=== PATIENT | female | born 1985 | race Hispanic/Latino ===

== ENCOUNTER 2023-02-22 09:34 | Inpatient (IN) | payer SELFPAY ==
[2023-02-22 11:29] LABS: #Monocytes 0.5 10x3/uL (0.0-1.1); #Neutrophils 9.5 10x3/uL (1.5-8.4); %Basophils 0.2 % (0.0-2.0); %Eosinophils 0.1 % (0.0-6.0); %Lymphocytes 22.7 % (18.0-47.0); %Monocytes 3.9 % (0.0-10.0); %Neutrophils 72.5 % (40.0-75.0); Mean Corpuscular HGB CONC 30.8 g/dL (32.0-36.0); Mean Corpuscular Hemoglobin 23.9 pg (27.0-33.0); Mean Corpuscular Volume 77.5 fl (81.6-98.3); Platelet Count 381 10x3/uL (150-450); RBC Distribution Width 19.2 % (11.5-14.5); Red Blood Cell (RBC) Count 2.93 10x6/uL (3.90-5.03); White Blood Cell (WBC) Count 13.1 10x3/uL (3.5-10.5)
[2023-02-22 15:05] LABS: Hemoglobin 8.6 g/dL (12.0-15.5)
[2023-02-22] MEDS ORDERED: Acetaminophen 325 MG TAB PO PRN (15:57)
[2023-02-22] MEDS ORDERED: Ondansetron ODT 4 MG TAB PO PRN (15:57)
[2023-02-22] MEDS ORDERED: Ondansetron PF 4 MG/2 ML Vial IVP PRN (15:57)
[2023-02-22] MEDS ORDERED: HumaLOG 300 UNITS/3 ML VIAL SC PRN ×2 (15:59)
[2023-02-22] MEDS ORDERED: Dextrose 50% Abboject 50 ML SYRINGE SLOW IVP PRN (15:59)
[2023-02-22] MEDS ORDERED: Dextrose 5% in Water 1,000 ML IV PRN (15:59)
[2023-02-22] MEDS ORDERED: Sodium Chloride 0.9% 1,000 ML IV SCH (16:00)
[2023-02-22] MEDS ORDERED: Electrolyte Replacement Protocol 1 EACH FS SCH (16:00)
[2023-02-22 18:37] LABS: Hemoglobin 8.5 g/dL (12.0-15.5)
[2023-02-22] MEDS ORDERED: Atorvastatin Calcium 40 MG TAB ONE (20:53)
[2023-02-22] MEDS ORDERED: Atorvastatin Calcium 40 MG TAB PO SCH (21:00)
[2023-02-23 00:13] LABS: Hemoglobin 7.6 g/dL (12.0-15.5)
[2023-02-23 06:19] LABS: #Eosinphils 0.1 10x3/uL (0.0-0.5); #Monocytes 0.5 10x3/uL (0.0-1.1); #Neutrophils 7.3 10x3/uL (1.5-8.4); %Basophils 0.3 % (0.0-2.0); %Eosinophils 0.9 % (0.0-6.0); %Lymphocytes 26.3 % (18.0-47.0); %Monocytes 4.4 % (0.0-10.0); %Neutrophils 67.4 % (40.0-75.0); Hemoglobin 7.3 g/dL (12.0-15.5); Mean Corpuscular HGB CONC 31.6 g/dL (32.0-36.0); Mean Corpuscular Hemoglobin 24.6 pg (27.0-33.0); Mean Corpuscular Volume 77.8 fl (81.6-98.3); Mean Platelet Volume 9.9 fl (7.4-10.4); Platelet Count 299 10x3/uL (150-450); RBC Distribution Width 18.7 % (11.5-14.5); Red Blood Cell (RBC) Count 2.97 10x6/uL (3.90-5.03); White Blood Cell (WBC) Count 10.8 10x3/uL (3.5-10.5)
[2023-02-23 11:16] VITALS: BP 101/59; TEMP 99.2
[2023-02-23 12:52] LABS: Hemoglobin 8.2 g/dL (12.0-15.5)
[2023-02-23 13:12] LABS: Hemoglobin A1c 5.9 % (4.0-6.0)
== END 2023-02-23 15:18 | disposition home or self-care (01) | DRG 812 ==
LOC: CSHERS 09:34 → CSHERHOLD 17:04 → CSHPP 23:38
PROVIDERS: ADMIT Student in an Organized Health Care Education/Training Program; ATTEND Internal Medicine
PROC: 30233N1 Transfusion of Nonautologous Red Blood Cells into Peripheral Vein, Percutaneous Approach (ICD-10-PCS; principal; 2023-02-22)
DX: D50.0 Iron deficiency anemia secondary to blood loss (chronic) (principal); N93.9 Abnormal uterine and vaginal bleeding, unspecified; I10 Essential (primary) hypertension; E11.9 Type 2 diabetes mellitus without complications; Z79.899 Other long term (current) drug therapy; Z79.84 Long term (current) use of oral hypoglycemic drugs; Z79.82 Long term (current) use of aspirin; Z98.51 Tubal ligation status; Z82.49 Family history of ischemic heart disease and other diseases of the circulatory system; Z83.3 Family history of diabetes mellitus; D72.829 Elevated white blood cell count, unspecified; E78.00 Pure hypercholesterolemia, unspecified
CPT/HCPCS: 36415; 36416; 36430; 83036; 86850; 86900; 86901; 99284; J7050; P9016